=== PATIENT | female | born 1990 | race Caucasian/White ===

== ENCOUNTER 2018-09-28 20:39 | Emergency (ER) | payer OTHER ==
[~2018-09-28] VITALS: Ht 170.2 cm; Wt 56.7 kg
== END 2018-09-28 23:45 | disposition home or self-care (01) ==
LOC: ER 20:39
DX: S00.03XA Contusion of scalp, initial encounter (principal); W18.39XA Other fall on same level, initial encounter; Y93.89 Activity, other specified; Y92.59 Other trade areas as the place of occurrence of the external cause; Y99.8 Other external cause status